=== PATIENT | female | born 1980 | race Caucasian/White ===

== ENCOUNTER 2024-10-14 18:14 | Emergency (ER) | payer OTHER, SELFPAY ==
[2024-10-14 18:19] VITALS: BP 145/103
[2024-10-14 18:39] LABS: % Basophils 0.4 % (0-2); % Eosinophils 0.3 % (0-6); % Immature Granulocytes 0.3 % (0-0.5); % Lymphocytes 23.8 % (20.5-51.1); % Monocytes 4.2 % (1.7-9.3); Absolute Lymphocytes 1.6 10^3/uL (1.2-3.4); Absolute Monocytes 0.3 10^3/uL (0.1-0.6); Absolute Neutrophils 4.7 10^3/uL (1.4-6.5); Hematocrit 42.1 % (37.0-47.0); Hemoglobin 14.5 g/dL (12.0-16.0); Mean Corp Hgb Conc. 34.4 g/dL (33.0-37.0); Mean Corpuscular Hgb 31.3 pg (27.0-31.0); Mean Corpuscular Volume 90.7 fL (81.0-99.0); Mean Platelet Volume 9.1 fL (7.4-10.4); Nucleated Red Blood Cells % 0 %; Platelet Count 270 10^3/uL (130-400); Red Blood Cell Count 4.64 10^6/uL (4.20-5.40); White Blood Cell Count 6.7 10^3/uL (4.8-10.8)
[2024-10-14 18:46] LABS: HCG, Serum Qualitative Screen Negative
[2024-10-14 18:49] LABS: ALT (SGPT) 15 U/L (0-35); AST (SGOT) 23 U/L (14-36); Albumin 5.1 g/dl (3.5-5.0); Alkaline Phosphatase 66 U/L (38-126); Blood Urea Nitrogen 12 mg/dl (7-17); Calcium 9.9 mg/dl (8.4-10.2); Carbon Dioxide 24 mmol/L (22-30); Chloride 104 mmol/L (98-107); Glucose 105 mg/dl (70-99); Potassium 4.1 mmol/L (3.5-5.1); Sodium 141 mmol/L (135-145); Total Bilirubin 0.8 mg/dl (0.2-1.3); Total Protein 8.1 g/dl (6.3-8.2); eGFR > 60.00
[2024-10-14 18:52] LABS: Lipase 357 U/L (23-300)
[2024-10-14 21:22] VITALS: BMI 25.3
--- NOTE | 2024-10-14 21:22 | ED.GENMED ---
History of Present Illness
General
Chief Complaint: Abdominal Pain
Source: patient
Exam Limitations: none
Time Seen by Provider: 10/14/24 21:01
History of Present Illness
History of Present Illness:
43yoF with no significant past medical history presenting for evaluation of abdominal pain. Patient reports intermittent pain in her RLQ for over a month. Pain is described as a tense sensation and is non-radiating. Pain has become more frequent
and has been worsening slightly. She was on a walk this evening when the pain worsened. She decided to go to [facility] and she was ultimately sent to the ED for concern for appendicitis. Patient is otherwise asymptomatic and denies any
fevers, chills, vomiting, diarrhea, constipation, dysuria, weight loss. Menses have been normal. No previous abdominal surgeries.
Phy Exam
General Physical Exam
General Presentation: well appearing and no apparent distress
General age: appears stated age
General Skin: warm and dry
General Habitus: normal
General Mental: alert
ENT Exam
ENT Exam: normocephalic
Pulmonary Exam
Pulmonary Exam: lungs clear, no respiratory distress, no rales, no crackles, no rhonchi and no wheezing
Gastrointestinal Exam
Gastrointestinal Exam: soft, non distended and other (+Mild tenderness in RLQ. Abdomen soft, non-distended. No rebound or guarding. )
Neurological Exam
Neurological Exam: alert
[place] Coma Scale
Eye Opening: Spontaneous
Verbal Response: Oriented
Motor Response: Obeys Commands
GCS Total Score: 15
Skin Exam
Skin Exam: normal color and warm/dry
Psychiatric Exam
Psychiatric Exam: normal mood/affect
Course
Orders/Labs/Results
Orders:
Orders
10/14/24 18:22
Test Result ONCE
10/14/24 18:26
Complete Blood Count/With Diff Urgent
Comprehensive Metabolic Panel Urgent
HCG, Serum Qualitative Screen Urgent
Lipase Urgent
10/14/24 21:21
Iohexol [Omnipaque] See Protocol PO NOW STA
10/14/24 21:28
CT Abd/pelvis W Iv Cont Urgent
Comment:
Reason For Exam: RLQ pain
Abnormal Lab Results
10/14/24
18:26
MCH 31.3 H pg
(27.0-31.0)
Glucose 105 H mg/dl
(70-99)
Albumin 5.1 H g/dl
(3.5-5.0)
Lipase 357 H U/L
(23-300)
10/14/24 18:26
10/14/24 18:26
Vital Signs
Initial and Last Documented VS:
Initial Vital Signs
Temp Pulse Resp BP Pulse Ox
98.2 F 72 20 145/103 99
10/14/24 18:19 10/14/24 18:19 10/14/24 18:19 10/14/24 18:19 10/14/24 18:19
Last Documented Vital Signs
Temp Pulse Resp BP Pulse Ox
98.2 F 72 16 145/103 99
10/14/24 18:19 10/14/24 18:19 10/14/24 22:13 10/14/24 18:19 10/14/24 18:19
MDM/Problems Addressed
Differential Diagnosis Includes:
43yoF here with RLQ pain. Intermittent x 1 month. Sent in by urgent care for concern for appendicitis. VSS. She is well appearing in no distress. No signs of peritonitis on abdominal exam. Differential diagnosis includes but is not limited to:
appendicitis, ovarian cyst, colitis, mesenteric adenitis, musculoskeletal, nonspecific abdominal pain
Initial ED plan: Labs obtained in triage. Lipase mildly elevated at 357. Remainder of labs unremarkable including normal white count. Will check CT abdomen with IV contrast. She declines analgesics.
*Critical Care Note
Total Time (30-74mins, 75-104mins- exclusive of procedures): Not Applicable
Update Note
Update Note:
Imaging negative for acute findings. Appendix not well-visualized but there are no secondary findings suggestive of acute appendicitis. No indication for hospitalization. Unclear etiology of symptoms. She was advised to follow-up with her PCP
and gastroenterology. ED return precautions reviewed. Patient discharged in stable condition.
ED Attending Note
-
Portions of this chart may have been created with voice recognition software.� Occasional wrong word or��sound alike� substitutions may have occurred due to the inherent limitations of voice recognition software.
Discharge Plan
Departure
Patient Disposition: Home (Routine Discharge)
Date of Disposition: 10/14/24
Time of Disposition: 23:57
Patient with high blood pressure during this ER visit?: Yes
Discharge Problem:
Right lower quadrant pain
Instructions: Abdominal Pain
Referrals:
Nithin Perez MD [Active] -
UNKNOWN - PT DOES,NOT KNOW [Unknown Provider] -
Activity Restrictions/Additional Instructions:
Please follow-up with your family doctor and gastroenterology. Return to the ER with any new or worsening symptoms including severe pain or fevers.
Interventions
Interventions:
*Risk Screen - Suicide Last Done: 10/14/24 22:13
*General Assessment Last Done: 10/14/24 18:19
*Neglect/Abuse Screening Last Done: 10/14/24 22:13
*ED- Fall Risk Assessment Last Done: 10/14/24 22:13
*ED COVID-19 Vaccine History Last Done: 10/14/24 22:13
[facility] Assessment Last Done: 10/14/24 22:13
Discharge Date and Time
Print Language: CZECH
[2024-10-15] VITALS: BP 131/82
[2024-10-15 00:15] VITALS: BP 131/82
== END 2024-10-15 00:16 | disposition home or self-care (01) ==
LOC: EMR 18:14
PROVIDERS: Emergency Medicine; EMERGENCY PHYSICIAN Emergency Medicine; FAMILY PHYSICIAN Family Medicine
DX: R10.31 Right lower quadrant pain (principal)
CPT/HCPCS: 99284; 74177; 80053; 83690; 84703; 85025; Q9967